=== PATIENT | male | born 1965 | race Caucasian/White ===

== ENCOUNTER 2018-07-29 21:08 | Emergency (ER) | payer OTHER ==
[~2018-07-29] VITALS: Ht 185.4 cm; Wt 104.8 kg
[2018-07-29 21:17] VITALS: Ht 185.4 cm; Wt 104.8 kg
[2018-07-29 23:07] VITALS: BP 126/50
== END 2018-07-29 23:07 | disposition home or self-care (01) ==
LOC: ED 21:08
DX: N39.0 Urinary tract infection, site not specified (principal); I10 Essential (primary) hypertension; Z90.49 Acquired absence of other specified parts of digestive tract; Z98.890 Other specified postprocedural states